=== PATIENT | female | born 1990 | race Caucasian/White ===

== ENCOUNTER 2017-11-15 23:57 | Emergency (ER) | payer OTHER ==
[~2017-11-15] VITALS: Ht 162.6 cm; Wt 81.7 kg
[~2017-11-15 23:57] MED LIST: GENTAMICIN SU3 MG/ML OPHTHALMIC; NOHOMEMEDICATIONS; TRAMADOL 50 MG50 MG PO
[2017-11-16 00:12] LABS: URINE BILIRUBIN NEGATIVE (Negative); URINE BLOOD 2+ (Negative); URINE CLARITY CLEAR; URINE COLOR YELLOW; URINE GLUCOSE-RANDOM NEGATIVE (Negative); URINE KETONES 1+ (Negative); URINE LEUKOCYTES-REFLEX NEGATIVE (Negative); URINE NITRITE-REFLEX NEGATIVE (Negative); URINE PROTEIN NEGATIVE (Negative); URINE SPECIFIC GRAVITY 1.025 (1.005-1.030)
[2017-11-16 00:28] LABS: BACTERIA-REFLEX 1-9 Few /HPF (None Seen); CASTS None Seen /LPF (None Seen); CRYSTALS None Seen /LPF (None Seen); MUCUS 0-3 Light strn/LPF (None Seen); SQUAMOUS >10 Many /LPF (0-3); URINE RBC 0-2 Rare /HPF (0-2); URINE WBC-REFLEX None Seen /HPF (0-5)
[2017-11-16 00:29] LABS: HEMATOCRIT 42.4 % (37.0-47.0); HEMOGLOBIN 14.2 gm/dL (12.0-15.0); MCH 30.6 pg (26.0-34.0); MCHC 33.5 g/dL (28.0-37.0); MCV 91.3 fL (80.0-100.0); MPV 6.5 fl. (7.2-11.1); NUCLEATED RBCS 0 /100WBC; PLATELET COUNT* 339 thou/uL (150-400); RBC 4.64 mil/uL (4.20-5.00); RDW-CV 13.4 % (10.5-14.5); WBC 14.8 thou/uL (4.0-11.0)
[2017-11-16 00:49] LABS: CALCIUM 8.5 mg/dL (8.5-10.1); CREATININE 0.7 mg/dL (0.6-1.3); POTASSIUM 3.6 mmol/L (3.5-5.1)
[2017-11-16 00:51] LABS: ABSOLUTE EOSINOPHILS 0.6 thou/uL (0.0-0.7); ABSOLUTE LYMPHOCYTES 0.9 thou/uL (0.8-5.3); ABSOLUTE MONOCYTES 0.6 thou/uL (0.0-1.2); ABSOLUTE NEUTROPHILS 12.7 thou/uL (1.6-8.1)
[2017-11-16 00:52] LABS: PLATELET ESTIMATE ADEQUATE
[2017-11-16] MEDS ORDERED: ZOFRAN ODT4 MG SUBLING (00:52)
[2017-11-16 00:53] LABS: ALBUMIN 3.9 g/dL (3.4-5.0); TOTAL BILIRUBIN 0.8 mg/dL (<0.1-1.0); TOTAL PROTEIN 7.4 g/dL (6.4-8.2)
[2017-11-16 01:09] VITALS: BP 100/59
== END 2017-11-16 01:10 | disposition home or self-care (01) ==
LOC: M.ERS 23:57
PROVIDERS: Family Medicine
DX: R11.2 Nausea with vomiting, unspecified (principal); F17.210 Nicotine dependence, cigarettes, uncomplicated; Z88.8 Allergy status to other drugs, medicaments and biological substances

== ENCOUNTER 2018-02-20 02:41 | Emergency (ER) | payer OTHER ==
[~2018-02-20] VITALS: Ht 162.6 cm; Wt 83.9 kg
[~2018-02-20 02:41] MED LIST changes: +ZOFRAN ODT4 MG SUBLING
[2018-02-20 03:16] LABS: ABSOLUTE BASOPHILS 0.1 thou/uL (0.0-0.2); ABSOLUTE EOSINOPHILS 0.5 thou/uL (0.0-0.7); ABSOLUTE LYMPHOCYTES 2.8 thou/uL (0.8-5.3); ABSOLUTE NEUTROPHILS 9.8 thou/uL (1.6-8.1); EOSINOPHILS 3.4 %; HEMATOCRIT 41.5 % (37.0-47.0); HEMOGLOBIN 13.8 gm/dL (12.0-15.0); LYMPHOCYTES 19.5 %; MCH 30.8 pg (26.0-34.0); MCHC 33.3 g/dL (28.0-37.0); MCV 92.5 fL (80.0-100.0); MONOCYTES 6.8 %; MPV 6.6 fl. (7.2-11.1); NUCLEATED RBCS 0 /100WBC; PLATELET COUNT* 307 thou/uL (150-400); POLYS 69.3 %; RBC 4.48 mil/uL (4.20-5.00); RDW-CV 13.5 % (10.5-14.5); WBC 14.1 thou/uL (4.0-11.0)
[2018-02-20 03:31] LABS: ANION GAP 9 mmol/L (7-16); BUN 13 mg/dL (7-18); CALCIUM 8.8 mg/dL (8.5-10.1); CHLORIDE 102 mmol/L (98-107); CO2 27 mmol/L (21-32); GLUCOSE 140 mg/dL (70-99); POTASSIUM 3.5 mmol/L (3.5-5.1); SODIUM 138 mmol/L (136-145)
[2018-02-20 03:36] LABS: ALBUMIN 3.7 g/dL (3.4-5.0); ALKALINE PHOSPHATASE 76 U/L (46-116); SGOT 18 U/L (15-37); SGPT 24 U/L (30-65); TOTAL BILIRUBIN 0.6 mg/dL (<0.1-1.0); TOTAL PROTEIN 7.1 g/dL (6.4-8.2)
[2018-02-20 03:40] LABS: URINE BILIRUBIN NEGATIVE (Negative); URINE BLOOD TRACE (Negative); URINE CLARITY CLEAR; URINE COLOR YELLOW; URINE GLUCOSE-RANDOM NEGATIVE (Negative); URINE KETONES NEGATIVE (Negative); URINE LEUKOCYTES-REFLEX NEGATIVE (Negative); URINE NITRITE-REFLEX NEGATIVE (Negative); URINE PROTEIN NEGATIVE (Negative); URINE SPECIFIC GRAVITY >= 1.030 (1.005-1.030); URINE UROBILINOGEN 0.2 E.U./dl (0.2-1.0)
[2018-02-20 03:57] LABS: TROPONIN-I LEVEL <0.06 ng/mL (<0.06)
[2018-02-20 04:04] VITALS: BP 102/53
[2018-02-20 04:11] LABS: AMP/METHAMP Negative (Negative); BARBITURATES Negative (Negative); BENZODIAZEPINES Negative (Negative); COCAINE Negative (Negative); METHADONE Negative (Negative); OPIATES Negative (Negative); PCP Negative (Negative); THC POSITIVE (Negative)
--- NOTE | 2018-02-20 16:37 | EKG ---
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
== END 2018-02-20 04:05 | disposition home or self-care (01) ==
LOC: M.ERS 02:41
PROVIDERS: Emergency Medicine
DX: R55 Syncope and collapse (principal); F17.210 Nicotine dependence, cigarettes, uncomplicated; Z98.890 Other specified postprocedural states; Z88.5 Allergy status to narcotic agent

== ENCOUNTER 2018-09-07 23:08 | Emergency (ER) | payer OTHER ==
[~2018-09-07] VITALS: Ht 162.6 cm; Wt 83.9 kg
[2018-09-07 23:15] VITALS: BP 139/96
[2018-09-07] MEDS ORDERED: IBUPROFEN 800800 M1 PO (23:23)
[2018-09-07] MEDS ORDERED: PENICILLIN V P500 MG PO (23:23)
[2018-09-07] MEDS ORDERED: TRAMADOL 50 MG50 MG PO (23:23)
== END 2018-09-07 23:25 | disposition home or self-care (01) ==
LOC: M.ERS 23:08
DX: K08.89 Other specified disorders of teeth and supporting structures (principal); F17.210 Nicotine dependence, cigarettes, uncomplicated; Z88.5 Allergy status to narcotic agent; Z98.890 Other specified postprocedural states

== ENCOUNTER 2018-11-22 21:42 | Emergency (ER) | payer OTHER ==
[~2018-11-22] VITALS: Ht 162.6 cm; Wt 83.9 kg
[~2018-11-22 21:42] MED LIST changes: +IBUPROFEN 800800 M1 PO; +PENICILLIN V P500 MG PO
[2018-11-22 22:49] LABS: INFLUENZA A ANTIGEN None Detected (None Detect); INFLUENZA B ANTIGEN None Detected (None Detect)
[2018-11-22] MEDS ORDERED: TESSALON PERLE100 MG PO (22:57)
[2018-11-22] MEDS ORDERED: HYDROCODON-ACE1 EAC7 PO (22:57)
[2018-11-22] MEDS ORDERED: AZITHROMYCIN 2250 MG PO (22:57)
[2018-11-22 23:15] VITALS: BP 134/75
--- NOTE | 2018-11-23 10:14 | EKG ---
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1990 Requested By: Jaylen Lange Order Number: [id number] Reading MD: Edgar Figueroa Measurements Intervals [place] Rate: 99 P: 51 VA: 148 QRS: 65 QRSD: 85 T: 8 QT: 354 QTc: 455 Interpretive Statements Sinus rhythm Probable left atrial enlargement Compared to ECG 02/20/2018 03:08:25 rate increased Electronically Signed On 11-23-2018 10:14:39 CAREER GUIDANCE TECHNICIAN by Edgar Figueroa [email or web address] <ELECTRONICALLY SIGNED> By: Edgar Figueroa MD, [facility] 11/23/18 [id number] Edgar Figueroa MD, FACC /EPI
== END 2018-11-22 23:15 | disposition home or self-care (01) ==
LOC: M.ERS 21:42
PROVIDERS: Emergency Medicine
DX: J18.9 Pneumonia, unspecified organism (principal); F17.210 Nicotine dependence, cigarettes, uncomplicated; Z98.890 Other specified postprocedural states; Z88.5 Allergy status to narcotic agent